=== PATIENT | female | born 1940 | race Caucasian/White ===

== ENCOUNTER 2024-02-13 17:07 | Observation (INO) ==
[2024-02-13 17:44] LABS: ABS Eosinophils 0.1 10^3/uL (0.0-0.5); ABS Lymphocytes 1.7 10^3/uL (1.0-4.8); ABS Monocytes 0.7 10^3/uL (0.0-0.9); ABS Neutrophils 7.6 10^3/uL (1.5-7.6); Eosinophil % 0.9 %; Hematocrit 35.2 % (35-45); Hemoglobin 12.3 g/dL (11.5-14.3); Lymphocyte % 16.6 %; Mean Corpuscular Hemoglobin 31.9 pg (27-33); Mean Corpuscular Volume 91.4 fL (80-97); Mean Platelet Volume 7.6 fL (7.5-11.2); Platelet Count 290 10^3/uL (150-450); Red Blood Count 3.85 10^6/uL (3.63-4.92); Red Cell Distribution Width 15.1 % (12-17); White Blood Count 10.1 10^3/uL (3.8-11.8)
[2024-02-13 18:14] LABS: INR 1.06 (0.83-1.13)
[2024-02-13 18:27] LABS: Albumin 4.3 g/dL (3.2-5.2); Albumin/Globulin Ratio 1.4 (1-3); Calcium 9.6 mg/dL (8.6-10.3); Creatinine, Serum 0.9 mg/dL (0.51-0.95); Potassium 3.9 mmol/L (3.5-5.0); Total Bilirubin 0.8 mg/dL (0.2-1.0); Total Protein 7.3 g/dL (6.4-8.9)
[2024-02-13] MEDS: Labetalol IV 5 MG/ML 20 ml VIAL IV PUSH ONE ×2 (19:06→22:48)
[2024-02-13 19:07] LABS: High Sensitivity Troponin 1 Hr 10 pg/mL (<15)
[2024-02-13 19:15] LABS: Magnesium 1.8 mg/dL (1.9-2.7)
[2024-02-13 19:30] LABS: TSH Ultra Thyroid Stim Horm 2.05 mcIU/mL (0.34-5.60)
[2024-02-13 19:37] LABS: Urine Appearance Clear; Urine Bilirubin Negative (Negative); Urine Blood Trace (Negative); Urine Color Dark-Yellow; Urine Glucose Negative (Negative); Urine Ketones Negative (Negative); Urine Nitrite Negative (Negative); Urine Protein Negative (Negative); Urine Specific Gravity 1.012 (1.002-1.030); Urine Urobilinogen Negative (Negative)
[2024-02-13] MEDS: Iohexol 350 (CONTRAST) 500 ML MDV IV ONE (19:46)
[2024-02-13 20:03] LABS: Urine Bacteria Absent /HPF (Absent); Urine Red Blood Cell 1+(3-5/hpf) /HPF (0-Trace); Urine Squamous Epithelial Cell Present /HPF (Absent); Urine White Blood Cell Trace(0-5/hpf) /HPF (0-Trace)
[2024-02-13] MEDS ORDERED: Polyethylene Glycol 3350 17 GM PACKET PO PRN (21:56)
[2024-02-13] MEDS ORDERED: Ondansetron 4 mg VIAL 2 MG/ML 2 ml VIAL IV PRN (21:56)
[2024-02-13] MEDS ORDERED: Senna TAB 8.6 mg TAB PO PRN (21:56)
[2024-02-14 00:09] LABS: HDL Cholesterol 65.4 mg/dL
[2024-02-14] MEDS: Enoxaparin 40 MG/0.4 ML SYR SUBCUT SCH (00:52)
[2024-02-14] MEDS: Magnesium Sulfate 2 gm BAG 2 GM/50 ML BAG IVPB ONE (10:23)
[2024-02-14] MEDS: Gadoteridol (CONTRAST) 279.3 MG/ML 10 ML IV ONE (11:13)
[2024-02-14 18:07] VITALS: BP 168/82
== END 2024-02-14 18:35 | disposition home or self-care (01) ==
LOC: ED 17:07 → EDHOLD 17:07 → SUATTDRO 21:56 → MEDTELE 22:48
PROVIDERS: ADMIT Student in an Organized Health Care Education/Training Program; ATTEND Hospitalist

== ENCOUNTER 2024-09-15 19:16 | Inpatient (IN) ==
[2024-09-15 20:15] LABS: ABS Basophils 0.1 10^3/uL (0.0-0.1); ABS Lymphocytes 1.1 10^3/uL (1.0-4.8); ABS Monocytes 0.4 10^3/uL (0.0-0.9); ABS Neutrophils 15.9 10^3/uL (1.5-7.6); Hematocrit 37.6 % (35-45); Lymphocyte % 6.5 %; Mean Corpuscular Hgb Conc 34.5 g/dL (31-36); Mean Corpuscular Volume 98.3 fL (80-97); Mean Platelet Volume 8.5 fL (7.5-11.2); Platelet Count 318 10^3/uL (150-450); Red Blood Count 3.83 10^6/uL (3.63-4.92); White Blood Count 17.5 10^3/uL (3.8-11.8)
[2024-09-15 20:43] LABS: High Sens Troponin Baseline 70 pg/mL (<15)
[2024-09-15 20:57] LABS: ALT 7 U/L (7-52); AST 15 U/L (13-39); Albumin 4.1 g/dL (3.5-5.7); Albumin/Globulin Ratio 1.4 (1-3); Alkaline Phosphatase 84 U/L (35-149); Anion Gap 13 mmol/L (2-16); Blood Urea Nitrogen 64 mg/dL (6-24); C Reactive Protein < 1.00 mg/L (<8.01); CO2 Carbon Dioxide 20 mmol/L (22-32); Chloride 100 mmol/L (101-111); Creatinine, Serum 3.43 mg/dL (0.51-0.95); Globulin 2.9 g/dL (2-4); Glucose 179 mg/dL (70-100); Potassium 3.7 mmol/L (3.5-5.0); Sodium 133 mmol/L (135-145); Total Bilirubin 0.5 mg/dL (0.2-1.0); eGFR CKD-EPI 12.7 (>60)
[2024-09-15 21:38] LABS: High Sensitivity Troponin 1 Hr 72 pg/mL (<15)
[2024-09-15] MEDS: Lactated Ringers 1000 ml BAG 1,000 ML IV ONE (23:05)
[2024-09-15 23:09] LABS: Urine Appearance Extra Turbid; Urine Bilirubin Negative (Negative); Urine Blood 2+ (Negative); Urine Glucose Negative (Negative); Urine Ketones Trace (Negative); Urine Nitrite Negative (Negative); Urine Protein 2+ (>=100 mg/dL) (Negative); Urine Specific Gravity 1.019 (1.002-1.030); Urine Urobilinogen Negative (Negative); Urine pH 5.5 (5.0-8.0)
[2024-09-15 23:14] LABS: Urine Color Yellow
[2024-09-15 23:15] LABS: Urine Bacteria 2+ /HPF (Absent); Urine Red Blood Cell 3+(>10/hpf) /HPF (0-Trace); Urine Squamous Epithelial Cell Present /HPF (Absent); Urine White Blood Cell 3+(>20/hpf) /HPF (0-Trace)
[2024-09-16] MEDS: cefTRIAXone 1 gm/50 mL D5W 1 GM/50 ML BAG IV ONE (00:30)
[2024-09-16 06:11] LABS: ABS Lymphocytes 1.5 10^3/uL (1.0-4.8); ABS Monocytes 0.6 10^3/uL (0.0-0.9); ABS Neutrophils 7.8 10^3/uL (1.5-7.6); Eosinophil % 0.1 %; Hematocrit 32.4 % (35-45); Hemoglobin 11.4 g/dL (11.5-14.3); Lymphocyte % 14.8 %; Mean Corpuscular Hemoglobin 34.5 pg (27-33); Mean Corpuscular Hgb Conc 35.3 g/dL (31-36); Mean Corpuscular Volume 97.9 fL (80-97); Mean Platelet Volume 8.4 fL (7.5-11.2); Platelet Count 243 10^3/uL (150-450); Red Blood Count 3.31 10^6/uL (3.63-4.92); Red Cell Distribution Width 16.7 % (12-17); White Blood Count 9.9 10^3/uL (3.8-11.8)
[2024-09-16 08:43] LABS: Calcium 8.6 mg/dL (8.6-10.3); Creatinine, Serum 3.09 mg/dL (0.51-0.95); Potassium 3.8 mmol/L (3.5-5.0); eGFR CKD-EPI 14.3 (>60)
[2024-09-16] MEDS: Heparin 5000 UNITS/ML 1 mL VIAL SUBCUT SCH (10:27)
[2024-09-16 11:41] LABS: Magnesium 1.6 mg/dL (1.9-2.7)
[2024-09-16] MEDS: Potassium Chloride LIQUID 20 MEQ/15 ML LIQUID PO ONE (15:12)
[2024-09-16] MEDS: Magnesium Sulfate 2 gm BAG 2 GM/50 ML BAG IVPB ONE (15:13)
[2024-09-16] MEDS: Magnesium Sulfate IV 1GM/100ML 1 GM/100 ML BAG IV ONE (16:56)
[2024-09-16] MEDS: NS 0.9% 1000 ml BAG 1,000 ML IV SCH (16:57)
[2024-09-16] MEDS: cefTRIAXone 1 gm/50 mL D5W 1 GM/50 ML BAG IV SCH (21:34)
[2024-09-17] MEDS ORDERED: cefTRIAXone 1 gm/50 mL D5W 1 GM/50 ML BAG IV SCH (00:30)
[2024-09-17 06:34] LABS: ABS Lymphocytes 1.3 10^3/uL (1.0-4.8); ABS Monocytes 0.5 10^3/uL (0.0-0.9); ABS Neutrophils 8.5 10^3/uL (1.5-7.6); ABS Nucleated RBC 0.01 10^3/ul; Eosinophil % 0.1 %; Hematocrit 31.7 % (35-45); Hemoglobin 11.2 g/dL (11.5-14.3); Lymphocyte % 12.4 %; Mean Corpuscular Hemoglobin 34.6 pg (27-33); Mean Corpuscular Hgb Conc 35.3 g/dL (31-36); Mean Corpuscular Volume 98.1 fL (80-97); Mean Platelet Volume 8.8 fL (7.5-11.2); Platelet Count 228 10^3/uL (150-450); Red Blood Count 3.23 10^6/uL (3.63-4.92); White Blood Count 10.3 10^3/uL (3.8-11.8)
[2024-09-17 06:46] LABS: Calcium 8.2 mg/dL (8.6-10.3); Creatinine, Serum 2.24 mg/dL (0.51-0.95); Magnesium 2.6 mg/dL (1.9-2.7); Potassium 3.8 mmol/L (3.5-5.0); eGFR CKD-EPI 21.1 (>60)
[2024-09-18 06:48] LABS: ABS Lymphocytes 1.4 10^3/uL (1.0-4.8); ABS Monocytes 0.5 10^3/uL (0.0-0.9); ABS Neutrophils 6.9 10^3/uL (1.5-7.6); Eosinophil % 0.4 %; Hemoglobin 11.7 g/dL (11.5-14.3); Lymphocyte % 16.1 %; Mean Corpuscular Hemoglobin 34.8 pg (27-33); Mean Corpuscular Hgb Conc 35.5 g/dL (31-36); Mean Corpuscular Volume 97.9 fL (80-97); Mean Platelet Volume 8.3 fL (7.5-11.2); Platelet Count 225 10^3/uL (150-450); Red Blood Count 3.37 10^6/uL (3.63-4.92); Red Cell Distribution Width 16.7 % (12-17); White Blood Count 8.8 10^3/uL (3.8-11.8)
[2024-09-18 07:15] LABS: Calcium 8.2 mg/dL (8.6-10.3); Creatinine, Serum 1.58 mg/dL (0.51-0.95); Magnesium 2.1 mg/dL (1.9-2.7); Potassium 3.7 mmol/L (3.5-5.0); eGFR CKD-EPI 32.1 (>60)
[2024-09-18 15:47] LABS: Phosphorus 2.3 mg/dL (2.5-5.0)
[2024-09-18] MEDS: Potassium Phosphate IV 10 MMOL in NS 0.9% 250 ml 250 ML IVPB ONE (18:10)
[2024-09-19 06:56] LABS: Calcium 7.8 mg/dL (8.6-10.3); Creatinine, Serum 1.27 mg/dL (0.51-0.95); Potassium 3.9 mmol/L (3.5-5.0); eGFR CKD-EPI 41.7 (>60)
[2024-09-19 07:50] LABS: Magnesium 1.7 mg/dL (1.9-2.7); Phosphorus 2.7 mg/dL (2.5-5.0)
[2024-09-19] MEDS: Magnesium Sulfate 2 gm BAG 2 GM/50 ML BAG IVPB ONE (08:46)
[2024-09-19 09:55] VITALS: BP 102/53
== END 2024-09-19 15:05 | DRG 683 ==
LOC: ED 19:16 → EDHOLD 19:16 → OBSVTOIN 23:52 → SUATTDRO 23:52 → MED 09-16 07:43
PROVIDERS: ADMIT Internal Medicine; ATTEND Student in an Organized Health Care Education/Training Program